=== PATIENT | female | born 1975 | race Two or more races ===

== ENCOUNTER 2022-04-29 19:34 | Inpatient (IN) | payer MEDICAID ==
[~2022-04-29] VITALS: Ht 149.9 cm; Wt 67.2 kg
--- NOTE | 2022-04-29 22:00 | NUR ---
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 TOLERATING R/A AT 98%. SAFETY MEASURES IN PLACE.
--- NOTE | 2022-04-29 22:12 | NUR ---
RAC #18G S/L BLOOD COLLECTED AND SENT TO LAB
--- NOTE | 2022-04-29 22:14 | NUR ---
EMT AT PT'S BEDSIDE Addendum: 04/29/22 at 2214 by BENI EMT AT PT'S BEDSIDE FOR EKG
--- NOTE | 2022-04-29 22:19 | NUR ---
URINE COLLECTED AND SENT TO LAB
[2022-04-29 22:38] LABS: BILIRUBIN,URINE NEGATIVE (NEGATIVE); COLOR,URINE RED (YELLOW); LEUKOCYTE ESTERASE ,URINE NEGATIVE (NEGATIVE); NITRITE, URINE POSITIVE (NEGATIVE); PH,URINE 5.5 (5.0-8.0); PROTEIN,URINE 3+ mg/dl (NEGATIVE); UGLUCOSE NEGATIVE (NEGATIVE)
[2022-04-29 22:45] LABS: D-DIMER 0.39 mg/L(FEU (0.17-0.50)
[2022-04-29 23:05] LABS: BASOPHILS % (AUTO) 0.6 % (0.0-2.0); EOSINOPHILS % (AUTO) 1.7 % (0.0-6.0); LYMPHOCYTES # (AUTO) 1.5 K/uL (0.8-4.8); LYMPHOCYTES % (AUTO) 28.9 % (20.0-44.0); MEAN CORPUSCULAR HGB CONC 30 g/dl (31.0-36.0); MEAN CORPUSCULAR VOLUME 60 fL (82-100); MONOCYTES # (AUTO) 0.4 K/uL (0.1-1.30); MONOCYTES % (AUTO) 6.8 % (2.0-12.0); NEUTROPHILS # (AUTO) 3.3 K/uL (1.8-8.9); PLATELET COUNT (AUTO) 374 K/uL (150-450); RED BLOOD CELL COUNT(AUTO) 2.12 MIL/uL (4.0-5.2); WHITE BLOOD COUNT (AUTO) 5.3 K/uL (4.3-11.0)
[2022-04-29 23:08] LABS: HEMATOCRIT 13 % (33-45); HEMOGLOBIN 3.7 g/dL (11.5-14.8)
[2022-04-29 23:09] LABS: CALCIUM, SERUM 8.1 mg/dL (8.5-10.1); CARBON DIOXIDE 26 mmol/L (21-32); CHLORIDE 107 mmol/L (98-107); CREATININE 0.4 mg/dL (0.6-1.3); GLUCOSE 120 mg/dL (74-106); POTASSIUM 3.1 mmol/L (3.5-5.1); SODIUM SERUM 141 mmol/L (136-145); UREA NITROGEN, BLOOD 14 mg/dL (7-18)
--- NOTE | 2022-04-29 23:09 | NUR ---
US TECH AT PT'S BEDSIDE
[2022-04-29 23:14] LABS: ALANINE AMINOTRANSFERASE 33 U/L (12-78); ALBUMIN 3.2 g/dL (3.4-5.0); ALKALINE PHOSPHATASE 76 U/L (46-116); ASPARTATE AMINOTRANSFERASE 32 U/L (15-37); BILIRUBIN,DIRECT 0.1 mg/dL (0.0-0.2); BILIRUBIN,TOTAL 0.2 mg/dL (0.2-1.0); TOTAL PROTEIN, SERUM 6.3 g/dL (6.4-8.2)
--- NOTE | 2022-04-29 23:32 | NUR ---
BLOOD TRANSFUSION CONSENT FORM SIGNED BY PT AND DR. YATES. PT VERBALIZES UNDERSTANDING.
--- NOTE | 2022-04-29 23:32 | NUR ---
COVID ANTIGEN SWAB COLLECTED AND SENT TO LAB
[2022-04-29 23:38] LABS: RBC,URINE TOO NUMEROUS TO COUN /HPF (0-2)
[2022-04-29 23:40] LABS: BACTERIA,URINE Few /HPF (None Seen); SQUAMOUS EPITHELIAL CELL,UR Few /HPF (None Seen); WBC,URINE 0-2 /HPF (0-3)
[2022-04-30] VITALS (15 sets, daily range): BP systolic 99–119; BP diastolic 40–61
[2022-04-30] MEDS ORDERED: HYDROCODONE/APAP 5/325MG TABLET PO PRN
[2022-04-30] MEDS ORDERED: ONDANSETRON HCL/PF 4 MG/2 ML VIAL IVP PRN
[2022-04-30] MEDS ORDERED: MAGNESIUM HYDROXIDE 30 ML UDC PO PRN
[2022-04-30] MEDS ORDERED: Z GUARD REMEDY 4 OZ OINT TP PRN
--- NOTE | 2022-04-30 00:18 | NUR ---
ROZINA IRIZARRY IT TECHNICAL ARCHITECT AT PT'S BEDSIDE FOR EVAL
[2022-04-30 00:47] LABS: THYROID STIMULATING HORMONE 2.049 uIU/mL (0.358-3.74)
--- NOTE | 2022-04-30 00:50 | NUR ---
INITIATED RBC X1 BLOOD TRANSFUSION. NO A/R NOTED. VSS. WILL MONITOR FOR A/R
--- NOTE | 2022-04-30 01:03 | NUR ---
REPORT GIVEN TO SOUMYA GREENWOOD RN FOR CHASTITY
[2022-04-30] MEDS ORDERED: IBUPROFEN 600 MG TABLET ONE (01:49)
[2022-04-30] MEDS ORDERED: POTASSIUM CHLORIDE 20 MEQ TAB.PRT.SR PO ONE ×2 (01:49)
[2022-04-30] MEDS: IBUPROFEN 600 MG TABLET PO SCH ×3 (01:54→12:18)
--- NOTE | 2022-04-30 02:17 | NUR ---
PT TOLERATING BLOOD TRANSFUSION WELL. VSS. NO A/R NOTED. WILL CONTINUE TO MONITOR.
--- NOTE | 2022-04-30 02:35 | NUR ---
TELE1 RN NOTES RECEIVED FROM ER PER PRISCILA THIS 46 YO FEMALE,ALERT,ORIENTED X4,SPEAK CYMRAES,UNDERSTAND LITTLE THAI,WITH CHIEF COMPLAINTS OF VAGINAL BLEEDING X2 WEEKS,DX OF SEVERE ANEMIA.WITH KNOWN HX OF ARTHRITIS.FIRST UNIT OF PRBC ON GOING STRATED IN EMERGENCY ROOM,INFUSING AT 100ML/HR RATE VIA IV PUMP,TOLERATED WELL.NO ADVERSE REACTION NOTED.WILL CONTINUE TO MONITOR FOR ACTIVE VAGINAL BLEED.AMBULATE WITH STEADY GAIT.CALL LIGHT IN REACH,NEEDS ANTICIPATED.
--- NOTE | 2022-04-30 02:39 | NUR ---
PT TRANSFERRED TO 117-1 VIA ACLS PROTOCOL. VSS. ALL BELONGINGS WITH PT. ENDORSED RBC UNIT X1 TO DURAN KELLOGG TO CONTINUE ADMINISTRATION.
--- NOTE | 2022-04-30 03:30 | NUR ---
TELE1 RN NOTES FIRST UNIT OF PRBC 294ML STARTED IN ER COMPLETED.NO ADVERSE REACTIONS NOTED.NS FLUSHING AT THIS TIME.
--- NOTE | 2022-04-30 04:00 | NUR ---
TELE1 RN NOTES SECOND UNIT OF PRBC 284ML STARTED,WITH VITAL SIGNS STABLE.
--- NOTE | 2022-04-30 06:23 | NUR ---
INSPECTOR [employer] NOTES SECOND UNIT OF PRBC STILL ON GOING,NO ADVERSE REACTION NOTED.DUE MEDS ADMINISTERED SCHEDULED.IN NO ACUTE DISTRESS.WILL ENDORSE TO DAY NURSE FOR CHASTITY
[2022-04-30 06:38] LABS: BASOPHILS % (MANUAL) 0 % (0.0-2.0); EOSINOPHILS % (MANUAL) 3 % (0-4); LYMPHOCYTES % (MANUAL) 23 % (16-48); MONOCYTES % (MANUAL) 5 % (0-11.0); NEUTROPHILS % (MANUAL) 69 (42-76)
--- NOTE | 2022-04-30 07:21 | NUR ---
RECREATION CENTER DIRECTOR OPENING NOTE PT ALERT AND ORIENTED X4. PT OCCITAN SPEAKING, UNDERSTANDS FEW WORDS IN IRISH. NO COMPLAINTS OF PAIN OR DISCOMFORT NOTED AT THIS TIME. PT HAS R AC 18 GUAGE. IV INTACT, PATENT AND FLUSHING WELL. ALL SAFETY MEASURES IN PLACE. CALL LIGHT WITHIN REACH. BED LOCKED AT LOWEST POSITION. SIDE RAILS UP X2. BED ALARM ON.
[2022-04-30] MEDS: PANTOPRAZOLE 40 MG TABLET.DR PO SCH (07:40)
[2022-04-30 07:55] LABS: EOSINOPHILS % (AUTO) 1.5 % (0.0-6.0); LYMPHOCYTES # (AUTO) 0.9 K/uL (0.8-4.8); LYMPHOCYTES % (AUTO) 20.7 % (20.0-44.0); MEAN CORPUSCULAR HGB CONC 31 g/dl (31.0-36.0); MEAN CORPUSCULAR VOLUME 68 fL (82-100); MONOCYTES # (AUTO) 0.3 K/uL (0.1-1.30); NEUTROPHILS # (AUTO) 2.9 K/uL (1.8-8.9); NEUTROPHILS % (AUTO) 68.8 % (43.0-81.0); PLATELET COUNT (AUTO) 311 K/uL (150-450); RED BLOOD CELL COUNT(AUTO) 2.88 MIL/uL (4.0-5.2); WHITE BLOOD COUNT (AUTO) 4.2 K/uL (4.3-11.0)
[2022-04-30 08:00] LABS: HEMATOCRIT 20 % (33-45)
--- NOTE | 2022-04-30 08:03 | NUR ---
rn note received call from lab that hgb 6.0 Addendum: 04/30/22 at 1017 by YAIMA BERNSTEIN RN JEAN CARLOS MERCEDES ORDERED TO TRANSFUSE 1 UNIT PRBC
[2022-04-30 08:05] LABS: CALCIUM, SERUM 8.2 mg/dL (8.5-10.1); CREATININE 0.5 mg/dL (0.6-1.3); MAGNESIUM 2.2 mg/dL (1.8-2.4); PHOSPHORUS 3.3 mg/dL (2.5-4.9); POTASSIUM 3.7 mmol/L (3.5-5.1)
--- NOTE | 2022-04-30 10:55 | NUR ---
blood transfusion started
--- NOTE | 2022-04-30 14:00 | NUR ---
blood transfusion complete. no adverse reactions noted at this time
--- NOTE | 2022-04-30 14:15 | NUR ---
rn note notiifed dylan perez that there is an active order for megace but on progress note there is a delay. dylan carlisle said to give. order noted and carried out.
[2022-04-30] MEDS: MEGESTROL ACETATE 40 MG TABLET PO SCH (15:36)
--- NOTE | 2022-04-30 16:19 | NUR ---
rn note 2nd unit PRBC blood transfusion started at this time
--- NOTE | 2022-04-30 17:33 | NUR ---
rn note notified vacuum technician ana if motrin should be given or discontinued. dylan carlisle said not to give motrin due to bleeding. motrin was ordered for pain. notified vacuum technician that patient has norco and tylenol on eMAR. said to give norco for pain. pt reports no pain or discomfort noted at this time
[2022-04-30] MEDS: SOD FERRIC GLUC 125 MG in IV NS 0.9% 100 ML IV SCH (18:12)
--- NOTE | 2022-04-30 18:45 | NUR ---
RN NOTE TRAFFIC SAFETY ADMINISTRATOR SAPPHIRE GIBSONACLAMIE DISCONTINUED MOTRIN
--- NOTE | 2022-04-30 18:50 | NUR ---
RN NOTE BLOOD TRANSFUSION COMPLETE.PT VITAL SIGNS STABLE. NO ADVERSE REACTION NOTED AT THIS TIME
--- NOTE | 2022-04-30 19:23 | NUR ---
DOUBLE NEEDLE OPERATOR LOCKSTITCH CLOSING NOTE PT ALERT AND ORIENTED X4. PT HEBREW SPEAKING, UNDERSTANDS FEW WORDS IN MALTESE. NO COMPLAINTS OF PAIN OR DISCOMFORT NOTED AT THIS TIME. PT HAS L AC 18 GUAGE. IV INTACT, PATENT AND FLUSHING WELL. ALL SAFETY MEASURES IN PLACE. CALL LIGHT WITHIN REACH. BED LOCKED AT LOWEST POSITION. SIDE RAILS UP X2. BED ALARM ON.STATUS POST BLOOD TRANSFUSION. NO ADVERSE REACTIONS NOTED AT THIS TIME. ENDORSED TO MOUNTER BRASS WIND INSTRUMENTS RN FOR CONTUTIYU OF CARE.
--- NOTE | 2022-04-30 19:30 | NUR ---
RN OPENING NOTES RECEIVED PATIENT IN BED AWAKE A/O X4. ABLE TO MAKE NEEDS KNOWN. WITH IV ACCESS ON LEFT AC #18 NOTED TO BE PATENT AND INTACT. PATIENT ON ROOM AIR TOLERATING WELL. NO SIGNS OF DISTRESS NOTED, NO SOB. SAFETY MEASURES IN PLACED; BED LOCKED AND IN LOWEST POSITION. CALL LIGHT AND BEDSIDE TABLE WITHIN PATIENTS REACH.
--- NOTE | 2022-04-30 19:30 | NUR ---
rn note attempted to call pharmacy to ask about 1400 ferrlecit. given late due to pt receiving blood transfusion.
[2022-04-30 20:29] LABS: BASOPHILS % (AUTO) 0.5 % (0.0-2.0); EOSINOPHILS % (AUTO) 2.6 % (0.0-6.0); HEMATOCRIT 25 % (33-45); LYMPHOCYTES # (AUTO) 1.5 K/uL (0.8-4.8); MEAN CORPUSCULAR HGB CONC 32 g/dl (31.0-36.0); MEAN CORPUSCULAR VOLUME 72 fL (82-100); MONOCYTES # (AUTO) 0.4 K/uL (0.1-1.30); MONOCYTES % (AUTO) 7.9 % (2.0-12.0); NEUTROPHILS # (AUTO) 3.1 K/uL (1.8-8.9); PLATELET COUNT (AUTO) 291 K/uL (150-450); RED BLOOD CELL COUNT(AUTO) 3.45 MIL/uL (4.0-5.2); WHITE BLOOD COUNT (AUTO) 5.2 K/uL (4.3-11.0)
[2022-05-01] VITALS: BP 104/54
[2022-05-01 03:03] LABS: BAND % (MANUAL) 3 % (0.0-5.0); BASOPHILS % (MANUAL) 0 % (0.0-2.0); EOSINOPHILS % (MANUAL) 2 % (0-4); LYMPHOCYTES % (MANUAL) 24 % (16-48); MONOCYTES % (MANUAL) 9 % (0-11.0); NEUTROPHILS % (MANUAL) 62 (42-76)
[2022-05-01 03:14] LABS: BAND % (MANUAL) 3 % (0.0-5.0); BASOPHILS % (MANUAL) 0 % (0.0-2.0); EOSINOPHILS % (MANUAL) 3 % (0-4); LYMPHOCYTES % (MANUAL) 21 % (16-48); MONOCYTES % (MANUAL) 9 % (0-11.0); NEUTROPHILS % (MANUAL) 64 (42-76)
[2022-05-01 04:00] VITALS: BP 109/56
[2022-05-01 06:30] LABS: BASOPHILS % (AUTO) 0.6 % (0.0-2.0); EOSINOPHILS % (AUTO) 2.4 % (0.0-6.0); HEMATOCRIT 25 % (33-45); HEMOGLOBIN 7.9 g/dL (11.5-14.8); LYMPHOCYTES # (AUTO) 1.3 K/uL (0.8-4.8); LYMPHOCYTES % (AUTO) 21.6 % (20.0-44.0); MEAN CORPUSCULAR HGB CONC 32 g/dl (31.0-36.0); MEAN CORPUSCULAR VOLUME 72 fL (82-100); MONOCYTES # (AUTO) 0.4 K/uL (0.1-1.30); MONOCYTES % (AUTO) 6.1 % (2.0-12.0); NEUTROPHILS % (AUTO) 69.3 % (43.0-81.0); PLATELET COUNT (AUTO) 289 K/uL (150-450); RED BLOOD CELL COUNT(AUTO) 3.47 MIL/uL (4.0-5.2); WHITE BLOOD COUNT (AUTO) 5.8 K/uL (4.3-11.0)
--- NOTE | 2022-05-01 06:42 | NUR ---
RN CLOSING NOTES PATIENT IN BED AWAKE A/O X4. ABLE TO MAKE NEEDS KNOWN. WITH IV ACCESS ON LEFT AC #18 NOTED TO BE PATENT AND INTACT SALINE LOCK. PATIENT ON ROOM AIR TOLERATING WELL. NO SIGNS OF DISTRESS NOTED, NO SOB. PATIENT MADE COMFORTABLE. ALL NEEDS ARE MET. PATIENT LABORATORY RESULT H&H IMPROVED RESULT IS 8.0 04-30-22. PATIENT IS NOT IN PAIN AT THIS TIME. VAGINAL SCANTING IS PRESENT.SAFETY MEASURES IN PLACED; BED LOCKED AND IN LOWEST POSITION. CALL LIGHT AND BEDSIDE TABLE WITHIN PATIENTS REACH. WILL ENDORSE TO NEXT SHIFT FOR CONTINUITY OF CARE.
[2022-05-01 06:50] LABS: CALCIUM, SERUM 7.9 mg/dL (8.5-10.1); CREATININE 0.4 mg/dL (0.6-1.3); MAGNESIUM 2.1 mg/dL (1.8-2.4); PHOSPHORUS 2.9 mg/dL (2.5-4.9); POTASSIUM 3.6 mmol/L (3.5-5.1)
--- NOTE | 2022-05-01 07:07 | NUR ---
COMPONENT TECHNICIAN OPENING NOTE PT ALERT AND ORIENTED X4. PT PASHTO SPEAKING, UNDERSTANDS FEW WORDS IN [place]. NO COMPLAINTS OF PAIN OR DISCOMFORT NOTED AT THIS TIME. PT HAS L AC 18 GAUGE. IV INTACT, PATENT AND FLUSHING WELL. ALL SAFETY MEASURES IN PLACE. CALL LIGHT WITHIN REACH. BED LOCKED AT LOWEST POSITION. SIDE RAILS UP X2. BED ALARM ON.
[2022-05-01 08:00] VITALS: BP 103/55
[2022-05-01] MEDS: PANTOPRAZOLE 40 MG TABLET.DR PO SCH (08:04)
[2022-05-01] MEDS: MEGESTROL ACETATE 40 MG TABLET PO SCH (08:05)
[2022-05-01] MEDS: ACETAMINOPHEN 325 MG TABLET PO PRN (11:33)
[2022-05-01 12:00] VITALS: BP 104/50
[2022-05-01] MEDS: SOD FERRIC GLUC 125 MG in IV NS 0.9% 100 ML IV SCH ×2 (14:00→15:16)
[2022-05-01 16:00] VITALS: BP 124/64
--- NOTE | 2022-05-01 16:38 | NUR ---
rn note special warfare combatant crewman orestes phillips aware of calcuim 7.9
--- NOTE | 2022-05-01 19:30 | NUR ---
COACH OPERATOR CLOSING NOTE PT ALERT AND ORIENTED X4. PT ON TELE MONITOR. PT LAO SPEAKING, UNDERSTANDS FEW WORDS IN [place]. NO COMPLAINTS OF PAIN OR DISCOMFORT NOTED AT THIS TIME. PT HAS R HAND 22 GUAGE. IV INTACT, PATENT AND FLUSHING WELL. ALL SAFETY MEASURES IN PLACE. CALL LIGHT WITHIN REACH. BED LOCKED AT LOWEST POSITION. SIDE RAILS UP X2. BED ALARM ON.. ENDORSED TO ANVILSMITH RN FOR CONTUTIY OF CARE.
--- NOTE | 2022-05-01 19:33 | NUR ---
RN OPENING NOTE PATIENT AWAKE IN BED. A/0X4. NO S/S OF DISTRESS; BREATHING WITHOUT DIFFICULTY ON ROOM AIR. R-HAND #22 INTACT AND PATENT. TELE READS SR 65. SAFETY MEASURES IN PLACE: BED LOCKED AND AT LOWEST POSITION, MID-FOWLERS, RAILS UP X2, CALL SUAREZ WITHIN REACH. WILL CONTINUE TO MONITOR PATIENT.
[2022-05-01 20:48] VITALS: BP 105/57
[2022-05-02] VITALS: BP 103/55
[2022-05-02 04:42] VITALS: BP 103/57
--- NOTE | 2022-05-02 06:39 | NUR ---
RN CLOSING NOTE PATIENT ASLEEP IN BED. A/OX4. NO S/S OF DISTRESS, BREATHING WITHOUT DIFFICULTY ON ROOM AIR. R-HAND #22 SL INTACT AND PATENT. SAFETY MEASURES IN PLACE: BED LOCKED IN PLACE AND AT LOWEST POSITION, MID-FOWLERS, RAILS UP X2, CALL SUAREZ WITHIN REACH. WILL ENDORSE TO NEXT SHIFT FOR CHASTITY.
[2022-05-02 06:53] LABS: BASOPHILS % (AUTO) 0.8 % (0.0-2.0); EOSINOPHILS % (AUTO) 3.6 % (0.0-6.0); HEMATOCRIT 27 % (33-45); HEMOGLOBIN 8.3 g/dL (11.5-14.8); LYMPHOCYTES # (AUTO) 1.5 K/uL (0.8-4.8); LYMPHOCYTES % (AUTO) 26.8 % (20.0-44.0); MEAN CORPUSCULAR HGB CONC 31 g/dl (31.0-36.0); MEAN CORPUSCULAR VOLUME 72 fL (82-100); MONOCYTES # (AUTO) 0.4 K/uL (0.1-1.30); MONOCYTES % (AUTO) 7.7 % (2.0-12.0); NEUTROPHILS # (AUTO) 3.5 K/uL (1.8-8.9); NEUTROPHILS % (AUTO) 61.1 % (43.0-81.0); PLATELET COUNT (AUTO) 334 K/uL (150-450); RED BLOOD CELL COUNT(AUTO) 3.69 MIL/uL (4.0-5.2); WHITE BLOOD COUNT (AUTO) 5.7 K/uL (4.3-11.0)
--- NOTE | 2022-05-02 07:16 | NUR ---
STANDARD MACHINE STITCHER OPENING NOTE RECEIVED PT. PT ALERT AND ORIENTED X4. PT ON TELE MONITOR. PT GREEK SPEAKING, UNDERSTANDS FEW WORDS IN SENEGALESE. NO COMPLAINTS OF PAIN OR DISCOMFORT NOTED AT THIS TIME. PT HAS R HAND 22 GUAGE. IV INTACT, PATENT AND FLUSHING WELL. ALL SAFETY MEASURES IN PLACE. CALL LIGHT WITHIN REACH. BED LOCKED AT LOWEST POSITION. SIDE RAILS UP X2. BED ALARM ON
[2022-05-02 07:37] LABS: CALCIUM, SERUM 8.3 mg/dL (8.5-10.1); CREATININE 0.4 mg/dL (0.6-1.3); MAGNESIUM 2.1 mg/dL (1.8-2.4); PHOSPHORUS 4.5 mg/dL (2.5-4.9); POTASSIUM 3.6 mmol/L (3.5-5.1)
[2022-05-02 08:00] VITALS: BP 105/62
[2022-05-02] MEDS: MEGESTROL ACETATE 40 MG TABLET PO SCH (08:02)
[2022-05-02] MEDS: PANTOPRAZOLE 40 MG TABLET.DR PO SCH (08:02)
[2022-05-02] MEDS: ACETAMINOPHEN 325 MG TABLET PO PRN (08:04)
[2022-05-02 12:00] VITALS: BP 119/62
[2022-05-02] MEDS: SOD FERRIC GLUC 125 MG in IV NS 0.9% 100 ML IV SCH ×2 (13:45→13:50)
[2022-05-02] MEDS ORDERED: MEGE40TA7 PO (14:09)
[2022-05-02 16:00] VITALS: BP 113/61
--- NOTE | 2022-05-02 17:02 | NUR ---
LABEL PASTER NOTE PT LEFT IN STABLE CONDITION. PT ALERT AND ORIENTED X4. REMOVED IV AND TELE MONITOR BOX. WENT OVER DISCHARGE INSTRUCTIONS AND MEDICATIONS. PT VERBALIZED UNDERSTANDING. PICKED UP BY [facility] AND ESCORTED OUT BY WHEELCHAIR WITH NURSING STAFF. ALL BELONGINGS WITH PT,
== END 2022-05-02 17:02 | disposition home or self-care (01) | DRG 532 ==
LOC: ER 19:37 → TELE1 04-30 00:57
PROVIDERS: ADMIT Nurse Practitioner Family; ATTEND Nurse Practitioner Acute Care
PROC: 30233N1 Transfusion of Nonautologous Red Blood Cells into Peripheral Vein, Percutaneous Approach (ICD-10-PCS; principal; 2022-04-30)
DX: N80.03 Adenomyosis of the uterus (principal); E44.1 Mild protein-calorie malnutrition; D62 Acute posthemorrhagic anemia; E88.09 Other disorders of plasma-protein metabolism, not elsewhere classified; N92.0 Excessive and frequent menstruation with regular cycle; E87.6 Hypokalemia; Z20.822 Contact with and (suspected) exposure to COVID-19; M19.90 Unspecified osteoarthritis, unspecified site; Z98.891 History of uterine scar from previous surgery; D50.9 Iron deficiency anemia, unspecified
CPT/HCPCS: 36415; 71045-TC; 76856-TC; 80048-TC; 80061-TC; 80076-TC; 81001; 82728-TC; 83540-TC; 83735-TC; 83880; 84100-TC; 84443-TC; 84484-TC; 84703-TC; 85025-TC; 85378-TC; 85730-TC; 86850-TC; 87081-TC; 87086-TC; A4223; C9803; G0378; J2916; J7030; J7050; P9016

== ENCOUNTER 2022-06-12 10:24 | Emergency (ER) | payer MEDICAID ==
[~2022-06-12] VITALS: Ht 149.9 cm; Wt 68.0 kg
[~2022-06-12 10:24] MED LIST: MEGE40TA7 PO
--- NOTE | 2022-06-12 10:30 | NUR ---
BIBS FOR VAGINAL BLEEDING X 2d. A/O X 3, ABLE TO MAKE NEEDS KNOWN, TOLERATING WELL ON ROOM AIR.
--- NOTE | 2022-06-12 10:40 | NUR ---
URINE SPECIMEN COLLECTED AND CALLED LAB FOR MANAGER CARE
--- NOTE | 2022-06-12 10:55 | NUR ---
PACKAGING SALES CONSULTANT AT BEDSIDE
[2022-06-12] MEDS ORDERED: KETOROLAC TROMETHAMINE INJ 60 MG/2 ML VIAL IM ONE (11:00)
[2022-06-12] MEDS ORDERED: ACETAMINOPHEN 325 MG TABLET PO ONE (11:00)
[2022-06-12 11:19] LABS: BILIRUBIN,URINE NEGATIVE (NEGATIVE); COLOR,URINE DARK YELLOW (YELLOW); LEUKOCYTE ESTERASE ,URINE TRACE (NEGATIVE); NITRITE, URINE NEGATIVE (NEGATIVE); PH,URINE 5.5 (5.0-8.0); PROTEIN,URINE 1+ mg/dl (NEGATIVE); UGLUCOSE NEGATIVE (NEGATIVE); UROBILINOGEN,URINE 0.2 EU/dL (0.2)
[2022-06-12 11:29] LABS: BASOPHILS % (AUTO) 0.6 % (0.0-2.0); EOSINOPHILS % (AUTO) 1.8 % (0.0-6.0); HEMATOCRIT 30 % (33-45); HEMOGLOBIN 9.7 g/dL (11.5-14.8); LYMPHOCYTES # (AUTO) 0.7 K/uL (0.8-4.8); LYMPHOCYTES % (AUTO) 12.4 % (20.0-44.0); MEAN CORPUSCULAR HGB CONC 33 g/dl (31.0-36.0); MEAN CORPUSCULAR VOLUME 83 fL (82-100); MONOCYTES # (AUTO) 0.2 K/uL (0.1-1.30); MONOCYTES % (AUTO) 4.2 % (2.0-12.0); NEUTROPHILS # (AUTO) 4.4 K/uL (1.8-8.9); PLATELET COUNT (AUTO) 360 K/uL (150-450); RED BLOOD CELL COUNT(AUTO) 3.59 MIL/uL (4.0-5.2); WHITE BLOOD COUNT (AUTO) 5.5 K/uL (4.3-11.0)
[2022-06-12 11:34] LABS: CALCIUM, SERUM 8.8 mg/dL (8.5-10.1); CREATININE 0.7 mg/dL (0.6-1.3); POTASSIUM 3.3 mmol/L (3.5-5.1)
[2022-06-12] MEDS ORDERED: KETOROLAC TROMETHAMINE INJ 30 MG/ML VIAL ONE (11:34)
[2022-06-12] MEDS ORDERED: ACETAMINOPHEN 325 MG TABLET ONE (11:38)
[2022-06-12] MEDS ORDERED: IBUP-1957 PO (11:41)
[2022-06-12 11:42] LABS: ALBUMIN 3.5 g/dL (3.4-5.0); BILIRUBIN,TOTAL 0.3 mg/dL (0.2-1.0); TOTAL PROTEIN, SERUM 6.8 g/dL (6.4-8.2)
[2022-06-12 11:55] LABS: BACTERIA,URINE Rare /HPF (None Seen); SQUAMOUS EPITHELIAL CELL,UR Few /HPF (None Seen); WBC,URINE 0-2 /HPF (0-3)
[2022-06-12 12:53] VITALS: BP 127/76
--- NOTE | 2022-06-12 12:55 | NUR ---
Patient discharged to home in stable condition. Written and verbal after care instructions given. Patient verbalizes understanding of instruction. NO active vaginal bleeding at this time
== END 2022-06-12 12:55 | disposition home or self-care (01) ==
LOC: ER 10:30
DX: N94.6 Dysmenorrhea, unspecified (principal); Z79.899 Other long term (current) drug therapy
CPT/HCPCS: 99283; 96372; 85025; 80048; 83690; 80076; 84703; 81001; 36415; 84702; J1885

== ENCOUNTER 2023-05-09 19:49 | Emergency (ER) | payer MEDICAID, OTHER ==
[~2023-05-09] VITALS: Ht 152.4 cm; Wt 72.6 kg
[~2023-05-09 19:49] MED LIST changes: +IBUP-1957 PO
[2023-05-09 21:07] VITALS: TEMP 98.6
[2023-05-09] MEDS ORDERED: IBUPROFEN 600 MG TABLET ONE (21:44)
[2023-05-09] MEDS: IBUPROFEN 600 MG TABLET PO ONE (21:47)
[2023-05-09 21:48] LABS: BASOPHILS % (AUTO) 0.6 % (0.0-2.0); EOSINOPHILS # (AUTO) 0.1 K/uL (0.0-0.7); EOSINOPHILS % (AUTO) 2.1 % (0.0-6.0); HEMATOCRIT 28 % (33-45); HEMOGLOBIN 9.5 g/dL (11.5-14.8); LYMPHOCYTES # (AUTO) 1.8 K/uL (0.8-4.8); LYMPHOCYTES % (AUTO) 28.1 % (20.0-44.0); MEAN CORPUSCULAR HEMOGLOBIN 30 PG (26.0-33.0); MEAN CORPUSCULAR HGB CONC 34 g/dl (31.0-36.0); MEAN CORPUSCULAR VOLUME 86 fL (82-100); MONOCYTES # (AUTO) 0.4 K/uL (0.1-1.30); MONOCYTES % (AUTO) 6.9 % (2.0-12.0); NEUTROPHILS # (AUTO) 3.9 K/uL (1.8-8.9); NEUTROPHILS % (AUTO) 62.3 % (43.0-81.0); PLATELET COUNT (AUTO) 258 K/uL (150-450); RED BLOOD CELL COUNT(AUTO) 3.21 MIL/uL (4.0-5.2); RED CELL DISTRIBUTION WIDTH 13.7 % (11.5-15.0); WHITE BLOOD COUNT (AUTO) 6.3 K/uL (4.3-11.0)
[2023-05-09 21:59] LABS: CALCIUM, SERUM 7.9 mg/dL (8.5-10.1); CREATININE 0.4 mg/dL (0.6-1.3); POTASSIUM 3.3 mmol/L (3.5-5.1)
[2023-05-09 22:21] LABS: INR 1.02 (0.91-1.10); PARTIAL THROMBOPLASTIN TIME 25.8 SEC (24.3-34.3); PROTHROMBIN TIME 10.8 SECS (9.2-11.1)
[2023-05-09] MEDS ORDERED: FERR325T23 PO (22:47)
[2023-05-09] MEDS ORDERED: IBUP-1957 PO (22:47)
[2023-05-09 22:52] VITALS: BP 111/72; O2SAT 99
[2023-05-09 23:02] LABS: APPEARANCE,URINE CLEAR (CLEAR); BILIRUBIN,URINE NEGATIVE (NEGATIVE); BLOOD, URINE 3+ Ery/uL (NEGATIVE); COLOR,URINE YELLOW (YELLOW); KETONES,URINE NEGATIVE (NEGATIVE); LEUKOCYTE ESTERASE ,URINE NEGATIVE (NEGATIVE); NITRITE, URINE NEGATIVE (NEGATIVE); PREGNANCY TEST URINE QUAL NEGATIVE (NEGATIVE); PROTEIN,URINE NEGATIVE (NEGATIVE); UGLUCOSE NEGATIVE (NEGATIVE); UROBILINOGEN,URINE 0.2 EU/dL (0.2)
[2023-05-09 23:03] LABS: ADD URINE CULTURE NO; BACTERIA,URINE Rare /HPF (None Seen); SQUAMOUS EPITHELIAL CELL,UR Rare /HPF (None Seen); WBC,URINE 0-2 /HPF (0-3)
== END 2023-05-09 22:54 | disposition home or self-care (01) ==
LOC: ER 19:53
DX: N93.8 Other specified abnormal uterine and vaginal bleeding (principal); N92.4 Excessive bleeding in the premenopausal period; M19.90 Unspecified osteoarthritis, unspecified site
CPT/HCPCS: 36415; 76856-TC; 80048-TC; 81001; 84703-TC; 85025-TC; 85730-TC; 86850-TC

== ENCOUNTER 2023-05-13 12:36 | Emergency (ER) | payer OTHER ==
[~2023-05-13] VITALS: Ht 165.1 cm; Wt 74.8 kg
[~2023-05-13 12:36] MED LIST changes: +FERR325T23 PO
[2023-05-13 13:31] LABS: BASOPHILS % (AUTO) 0.5 % (0.0-2.0); EOSINOPHILS # (AUTO) 0.1 K/uL (0.0-0.7); EOSINOPHILS % (AUTO) 1.1 % (0.0-6.0); HEMATOCRIT 26 % (33-45); HEMOGLOBIN 8.9 g/dL (11.5-14.8); LYMPHOCYTES # (AUTO) 2.8 K/uL (0.8-4.8); LYMPHOCYTES % (AUTO) 40.3 % (20.0-44.0); MEAN CORPUSCULAR HEMOGLOBIN 30 PG (26.0-33.0); MEAN CORPUSCULAR HGB CONC 34 g/dl (31.0-36.0); MEAN CORPUSCULAR VOLUME 87 fL (82-100); MONOCYTES # (AUTO) 0.5 K/uL (0.1-1.30); MONOCYTES % (AUTO) 6.5 % (2.0-12.0); NEUTROPHILS # (AUTO) 3.6 K/uL (1.8-8.9); NEUTROPHILS % (AUTO) 51.6 % (43.0-81.0); PLATELET COUNT (AUTO) 347 K/uL (150-450); RED BLOOD CELL COUNT(AUTO) 3.01 MIL/uL (4.0-5.2); RED CELL DISTRIBUTION WIDTH 14.1 % (11.5-15.0); WHITE BLOOD COUNT (AUTO) 7.1 K/uL (4.3-11.0)
[2023-05-13 13:42] LABS: CALCIUM, SERUM 8.7 mg/dL (8.5-10.1); CARBON DIOXIDE 23 mmol/L (21-32); CHLORIDE 102 mmol/L (98-107); CREATININE 0.6 mg/dL (0.6-1.3); GLUCOSE 137 mg/dL (74-106); POTASSIUM 3.3 mmol/L (3.5-5.1); SODIUM SERUM 138 mmol/L (136-145); UREA NITROGEN, BLOOD 11 mg/dL (7-18)
[2023-05-13 13:47] LABS: ALANINE AMINOTRANSFERASE 31 U/L (12-78); ALBUMIN 3.3 g/dL (3.4-5.0); ALKALINE PHOSPHATASE 134 U/L (46-116); ASPARTATE AMINOTRANSFERASE 29 U/L (15-37); BILIRUBIN,DIRECT 0.1 mg/dL (0.0-0.2); BILIRUBIN,TOTAL 0.2 mg/dL (0.2-1.0); TOTAL PROTEIN, SERUM 7.2 g/dL (6.4-8.2)
[2023-05-13] MEDS ORDERED: LORAZEPAM 1 MG TABLET ONE (14:28)
[2023-05-13] MEDS: LORAZEPAM 1 MG TABLET PO ONE (14:28)
[2023-05-13 15:25] VITALS: BP 122/88; TEMP 98.2; O2SAT 97
== END 2023-05-13 15:26 | disposition home or self-care (01) ==
LOC: ER 12:38
DX: R53.1 Weakness (principal); Z98.890 Other specified postprocedural states; Z79.899 Other long term (current) drug therapy
CPT/HCPCS: 36415; 71045-TC; 80048-TC; 80076-TC; 82962-TC; 83735-TC; 84484-TC; 85025-TC

== ENCOUNTER 2023-07-10 18:06 | Emergency (ER) | payer OTHER ==
[~2023-07-10] VITALS: Ht 149.9 cm; Wt 73.0 kg
[2023-07-10 19:09] LABS: BASOPHILS % (AUTO) 0.4 % (0.0-2.0); EOSINOPHILS # (AUTO) 0.3 K/uL (0.0-0.7); HEMATOCRIT 31 % (33-45); LYMPHOCYTES # (AUTO) 1.3 K/uL (0.8-4.8); LYMPHOCYTES % (AUTO) 15.1 % (20.0-44.0); MEAN CORPUSCULAR HEMOGLOBIN 26 PG (26.0-33.0); MEAN CORPUSCULAR HGB CONC 32 g/dl (31.0-36.0); MEAN CORPUSCULAR VOLUME 80 fL (82-100); MONOCYTES # (AUTO) 0.4 K/uL (0.1-1.30); MONOCYTES % (AUTO) 4.3 % (2.0-12.0); NEUTROPHILS # (AUTO) 6.6 K/uL (1.8-8.9); NEUTROPHILS % (AUTO) 77.2 % (43.0-81.0); PLATELET COUNT (AUTO) 352 K/uL (150-450); RED BLOOD CELL COUNT(AUTO) 3.88 MIL/uL (4.0-5.2); RED CELL DISTRIBUTION WIDTH 16.4 % (11.5-15.0); WHITE BLOOD COUNT (AUTO) 8.5 K/uL (4.3-11.0)
[2023-07-10] MEDS ORDERED: IBUPROFEN 400 MG TABLET ONE (19:13)
[2023-07-10] MEDS: IBUPROFEN 400 MG TABLET PO ONE (19:16)
[2023-07-10 19:38] LABS: CALCIUM, SERUM 9.1 mg/dL (8.5-10.1); CREATININE 0.5 mg/dL (0.6-1.3); POTASSIUM 3.6 mmol/L (3.5-5.1)
[2023-07-10 19:43] LABS: INR 1.06 (0.91-1.10); PROTHROMBIN TIME 11.2 SECS (9.2-11.1)
[2023-07-10 19:49] LABS: ALBUMIN 3.1 g/dL (3.4-5.0); BILIRUBIN,DIRECT 0.1 mg/dL (0.0-0.2); BILIRUBIN,TOTAL 0.1 mg/dL (0.2-1.0); TOTAL PROTEIN, SERUM 7.5 g/dL (6.4-8.2)
[2023-07-10 19:55] LABS: APPEARANCE,URINE CLEAR (CLEAR); BILIRUBIN,URINE NEGATIVE (NEGATIVE); BLOOD, URINE 3+ Ery/uL (NEGATIVE); COLOR,URINE YELLOW (YELLOW); KETONES,URINE NEGATIVE (NEGATIVE); LEUKOCYTE ESTERASE ,URINE 2+ (NEGATIVE); NITRITE, URINE NEGATIVE (NEGATIVE); PH,URINE 6.5 (5.0-8.0); PROTEIN,URINE NEGATIVE (NEGATIVE); UGLUCOSE NEGATIVE (NEGATIVE); UROBILINOGEN,URINE 0.2 EU/dL (0.2)
[2023-07-10 20:23] LABS: PREGNANCY TEST URINE QUAL NEGATIVE (NEGATIVE)
[2023-07-10 20:24] LABS: ADD URINE CULTURE YES; BACTERIA,URINE 1+ /HPF (None Seen); RBC,URINE 51-80 /HPF (0-2); SQUAMOUS EPITHELIAL CELL,UR 0-2 /HPF (None Seen)
[2023-07-10 20:30] LABS: PARTIAL THROMBOPLASTIN TIME 29.1 SEC (24.3-34.3)
[2023-07-10] MEDS ORDERED: IBUP-1957 PO (20:41)
[2023-07-10 20:53] VITALS: BP 121/71; TEMP 98; O2SAT 99
== END 2023-07-10 20:57 | disposition home or self-care (01) ==
LOC: ER 18:08
DX: N93.8 Other specified abnormal uterine and vaginal bleeding (principal); R10.2 Pelvic and perineal pain; M19.90 Unspecified osteoarthritis, unspecified site; Z98.890 Other specified postprocedural states; Z79.899 Other long term (current) drug therapy
CPT/HCPCS: 36415; 76856-TC; 80048-TC; 80076-TC; 81001; 84702-TC; 84703-TC; 85025-TC; 85730-TC; 86850-TC

== ENCOUNTER 2023-07-16 16:20 | Emergency (ER) | payer OTHER ==
[~2023-07-16] VITALS: Ht 142.2 cm; Wt 74.4 kg
[2023-07-16 16:52] LABS: BASOPHILS # (AUTO) 0.1 K/uL (0.0-0.2); BASOPHILS % (AUTO) 0.8 % (0.0-2.0); EOSINOPHILS # (AUTO) 0.3 K/uL (0.0-0.7); EOSINOPHILS % (AUTO) 3.9 % (0.0-6.0); HEMATOCRIT 30 % (33-45); LYMPHOCYTES # (AUTO) 2.2 K/uL (0.8-4.8); LYMPHOCYTES % (AUTO) 26.3 % (20.0-44.0); MEAN CORPUSCULAR HEMOGLOBIN 26 PG (26.0-33.0); MEAN CORPUSCULAR HGB CONC 33 g/dl (31.0-36.0); MEAN CORPUSCULAR VOLUME 80 fL (82-100); MONOCYTES # (AUTO) 0.4 K/uL (0.1-1.30); MONOCYTES % (AUTO) 4.3 % (2.0-12.0); NEUTROPHILS # (AUTO) 5.4 K/uL (1.8-8.9); NEUTROPHILS % (AUTO) 64.7 % (43.0-81.0); PLATELET COUNT (AUTO) 443 K/uL (150-450); RED BLOOD CELL COUNT(AUTO) 3.78 MIL/uL (4.0-5.2); RED CELL DISTRIBUTION WIDTH 16.3 % (11.5-15.0); WHITE BLOOD COUNT (AUTO) 8.4 K/uL (4.3-11.0)
[2023-07-16 17:01] LABS: MAGNESIUM 1.9 mg/dL (1.8-2.4)
[2023-07-16 17:16] LABS: ALANINE AMINOTRANSFERASE 24 U/L (12-78); ALBUMIN 3.4 g/dL (3.4-5.0); ALKALINE PHOSPHATASE 130 U/L (46-116); ASPARTATE AMINOTRANSFERASE 17 U/L (15-37); BILIRUBIN,DIRECT 0.1 mg/dL (0.0-0.2); BILIRUBIN,TOTAL 0.2 mg/dL (0.2-1.0); CALCIUM, SERUM 9.6 mg/dL (8.5-10.1); CHLORIDE 103 mmol/L (98-107); CREATININE 0.6 mg/dL (0.6-1.3); GLUCOSE 154 mg/dL (74-106); NT-PRO BNP 115 pg/mL (0-125); POTASSIUM 3.3 mmol/L (3.5-5.1); SODIUM SERUM 138 mmol/L (136-145); THYROID STIMULATING HORMONE 1.694 uIU/mL (0.358-3.74); TOTAL PROTEIN, SERUM 7.9 g/dL (6.4-8.2); UREA NITROGEN, BLOOD 13 mg/dL (7-18)
[2023-07-16 17:36] LABS: CARBON DIOXIDE 19 mmol/L (21-32)
[2023-07-16] MEDS ORDERED: POTASSIUM CHLORIDE 20 MEQ TAB.PRT.SR PO ONE (18:28)
[2023-07-16] MEDS ORDERED: ACETAMINOPHEN 325 MG TABLET ONE (18:28)
[2023-07-16 18:29] LABS: INR 1.04 (0.91-1.10); PARTIAL THROMBOPLASTIN TIME 26.8 SEC (24.3-34.3)
[2023-07-16 18:30] LABS: APPEARANCE,URINE CLEAR (CLEAR); BILIRUBIN,URINE NEGATIVE (NEGATIVE); BLOOD, URINE 3+ Ery/uL (NEGATIVE); COLOR,URINE YELLOW (YELLOW); KETONES,URINE NEGATIVE (NEGATIVE); LEUKOCYTE ESTERASE ,URINE 1+ (NEGATIVE); NITRITE, URINE NEGATIVE (NEGATIVE); PROTEIN,URINE NEGATIVE (NEGATIVE); UGLUCOSE NEGATIVE (NEGATIVE); UROBILINOGEN,URINE 0.2 EU/dL (0.2)
[2023-07-16 18:34] LABS: PREGNANCY TEST URINE QUAL NEGATIVE (NEGATIVE)
[2023-07-16] MEDS: IV NS 0.9% 1,000 ML BAG IV ONE (18:36)
[2023-07-16] MEDS: POTASSIUM CHLORIDE 20 MEQ TAB.PRT.SR PO ONE (18:37)
[2023-07-16] MEDS: ACETAMINOPHEN 325 MG TABLET PO ONE (18:37)
[2023-07-16 19:35] LABS: ADD URINE CULTURE YES; BACTERIA,URINE 1+ /HPF (None Seen); RBC,URINE 51-80 /HPF (0-2)
[2023-07-16] MEDS ORDERED: CEPH500T PO (19:53)
[2023-07-16] MEDS ORDERED: CEFTRIAXONE 1GM BAG (ER ONLY) 50 ML IV ONE (20:00)
[2023-07-16] MEDS: CEFTRIAXONE 1 G in IV D5W 50 ML IV ONE (20:13)
[2023-07-16 21:20] VITALS: BP 115/78; TEMP 97.8; O2SAT 97
== END 2023-07-16 21:31 | disposition home or self-care (01) ==
LOC: ER 16:25
DX: N39.0 Urinary tract infection, site not specified (principal); R53.1 Weakness; R00.2 Palpitations; M19.90 Unspecified osteoarthritis, unspecified site
CPT/HCPCS: 99285; 96365; 71045; 96361; 93005; 85025; 80048; 87086; 80076; 83735; 84703; 81001; 36415; 84443; 84484; 85730; 83880; J0696 ×2; J7060; J7030

== ENCOUNTER 2023-07-20 16:14 | Emergency (ER) | payer OTHER ==
[~2023-07-20] VITALS: Ht 142.2 cm; Wt 74.4 kg
[~2023-07-20 16:14] MED LIST changes: +CEPH500T PO
[2023-07-20] MEDS: IV NS 0.9% 1,000 ML BAG IV ONE (17:12)
[2023-07-20 17:14] LABS: PREGNANCY TEST URINE QUAL NEGATIVE (NEGATIVE)
[2023-07-20 17:16] LABS: BASOPHILS % (AUTO) 0.4 % (0.0-2.0); EOSINOPHILS # (AUTO) 0.1 K/uL (0.0-0.7); EOSINOPHILS % (AUTO) 0.7 % (0.0-6.0); HEMATOCRIT 31 % (33-45); HEMOGLOBIN 10.1 g/dL (11.5-14.8); LYMPHOCYTES # (AUTO) 0.8 K/uL (0.8-4.8); LYMPHOCYTES % (AUTO) 9.9 % (20.0-44.0); MEAN CORPUSCULAR HEMOGLOBIN 25 PG (26.0-33.0); MEAN CORPUSCULAR HGB CONC 32 g/dl (31.0-36.0); MEAN CORPUSCULAR VOLUME 78 fL (82-100); MONOCYTES # (AUTO) 0.2 K/uL (0.1-1.30); MONOCYTES % (AUTO) 2.7 % (2.0-12.0); NEUTROPHILS % (AUTO) 86.3 % (43.0-81.0); PLATELET COUNT (AUTO) 482 K/uL (150-450); RED BLOOD CELL COUNT(AUTO) 4.02 MIL/uL (4.0-5.2); RED CELL DISTRIBUTION WIDTH 16.2 % (11.5-15.0); WHITE BLOOD COUNT (AUTO) 8.2 K/uL (4.3-11.0)
[2023-07-20 17:24] LABS: CALCIUM, SERUM 9.1 mg/dL (8.5-10.1); CREATININE 0.5 mg/dL (0.6-1.3); POTASSIUM 3.4 mmol/L (3.5-5.1)
[2023-07-20 18:12] VITALS: BP 122/78; TEMP 98.4; O2SAT 98
== END 2023-07-20 18:12 | disposition home or self-care (01) ==
LOC: ER 16:30
DX: R00.2 Palpitations (principal); R20.2 Paresthesia of skin; M19.90 Unspecified osteoarthritis, unspecified site; Z87.42 Personal history of other diseases of the female genital tract
CPT/HCPCS: 99284; 96360; 93005; 85025; 80048; 84703; 36415; J7030